=== PATIENT | female | born 1980 | race Caucasian/White ===

== ENCOUNTER 2020-11-18 18:04 | Emergency (ER) | payer BC, OTHER ==
[~2020-11-18] VITALS: Ht 162.6 cm; Wt 77.3 kg
[~2020-11-18 18:04] MED LIST: FLUO10CA23 PO; [UNRECOGNIZED DRUG - REMARK]
[2020-11-18 20:03] LABS: COVID AG,FIA SOURCE NASOPHARYNGEAL
[2020-11-18 21:00] VITALS: BP 133/75
[2020-11-18] MEDS ORDERED: PredniSONE 20 MG TABLET PO ONE (21:00)
[2020-11-18] MEDS ORDERED: ALBUTEROL SULFATE HFA 90 MCG/PUFF 8 GM INHALER IH ONE (21:00)
== END 2020-11-18 21:55 | disposition home or self-care (01) ==
LOC: EMS 18:04
DX: J45.901 Unspecified asthma with (acute) exacerbation (principal); F41.9 Anxiety disorder, unspecified; G43.909 Migraine, unspecified, not intractable, without status migrainosus; Z20.828 Contact with and (suspected) exposure to other viral communicable diseases; Z88.0 Allergy status to penicillin
CPT/HCPCS: 36415; 71045; 84703; 87426; 94640; 99284; J7512; J3535